=== PATIENT | male | born 1980 | race Two or more races ===

== ENCOUNTER 2016-07-29 16:03 | Emergency (ER) | payer SELFPAY ==
[2016-07-29] MEDS ORDERED: NORMAL SALINE 1000 ML 1,000 ML IV ONE (16:13)
--- NOTE | 2016-07-29 16:13 | ER Document Report ---
ED Medical Screen (RME) - General Stated Complaint: DIZZY Notes: patient is a 35 year old male p/w elevated blood sugar. Patient denies emesis, increased urine output, very thirsty. No known diagnosis of diabetes, negative family history I have greeted and performed a rapid initial assessment of this patient. A comprehensive ED assessment and evaluation of the patient, analysis of test results and completion of the medical decision making process will be conducted by additional ED providers. - Related Data Allergies/Adverse Reactions: No Known Allergies Allergy (Unverified 07/29/16 16:12) Physical Exam - Vital signs Vitals: Temp Pulse Resp BP Pulse Ox 98.2 F 72 20 139/87 H 97 07/29/16 16:09 07/29/16 16:09 07/29/16 16:09 07/29/16 16:09 07/29/16 16:09 Course - Vital Signs Vital signs: Temp Pulse Resp BP Pulse Ox 98.2 F 72 20 139/87 H 97 07/29/16 16:09 07/29/16 16:09 07/29/16 16:09 07/29/16 16:09 07/29/16 16:09
[2016-07-29 17:03] LABS: ABSOLUTE LYMPHOCYTES (AUTO) 1.7 10^3/uL (0.5-4.7); ABSOLUTE MONOCYTES (AUTO) 0.6 10^3/uL (0.1-1.4); ABSOLUTE NEUT (AUTO) 4.4 10^3/uL (1.7-8.2); BASOPHILS % (AUTO) 0.5 % (0-2); EOSINOPHILS % (AUTO) 0.6 % (0-6); HEMATOCRIT 45.3 % (37.9-51.0); HEMOGLOBIN 15.4 g/dL (13.5-17.0); HGB HCT DIFFERENCE 0.9; LYMPHOCYTES % (AUTO) 25.3 % (13-45); MEAN CORPUSCULAR HEMOGLOBIN 33.8 pg (27.0-33.4); MEAN CORPUSCULAR HGB CONC 33.9 g/dL (32.0-36.0); MEAN CORPUSCULAR VOLUME 100 fl (80-97); MONOCYTES % (AUTO) 9.1 % (3-13); RED BLOOD COUNT 4.55 10^6/uL (4.35-5.55); RED CELL DISTRIBUTION WIDTH 12.3 % (11.5-14.0); SEGMENTED NEUTROPHILS % (AUTO) 64.5 % (42-78); WHITE BLOOD COUNT 6.8 10^3/uL (4.0-10.5)
[2016-07-29 17:06] LABS: APPEARANCE,URINE CLEAR; BILIRUBIN,URINE NEGATIVE (NEGATIVE); GLUCOSE, URINE >=500 mg/dL (NEGATIVE); KETONES,URINE 20 mg/dL (NEGATIVE); LEUKOCYTE ESTERASE,URINE NEGATIVE (NEGATIVE); NITRITE,URINE NEGATIVE (NEGATIVE); PROTEIN,URINE NEGATIVE (NEGATIVE); URINE SPECIFIC GRAVITY 1.027; UROBILINOGEN,URINE NEGATIVE mg/dL (<2.0)
[2016-07-29 17:24] LABS: ALANINE AMINOTRANSFERASE 56 U/L (21-72); ALBUMIN 4.6 g/dL (3.5-5.0); ALKALINE PHOSPHATASE 260 U/L (38-126); ANION GAP 19 (5-19); ASPARTATE AMINO TRANSFERASE 35 U/L (17-59); BILIRUBIN,TOTAL 1.1 mg/dL (0.2-1.3); BLOOD UREA NITROGEN 15 mg/dL (7-20); CALCIUM 10.7 mg/dL (8.4-10.2); CARBON DIOXIDE 24 mmol/L (22-30); CHLORIDE 87 mmol/L (98-107); CREATININE RESULT 0.51 mg/dL (0.52-1.25); MAGNESIUM 2.2 mg/dL (1.6-2.3); POTASSIUM 4.4 mmol/L (3.6-5.0); SODIUM 129.6 mmol/L (137-145); TOTAL PROTEIN 7.1 g/dL (6.3-8.2)
[2016-07-29 17:35] LABS: GLUCOSE 806 mg/dL (75-110)
[2016-07-29] MEDS ORDERED: INSULIN REG, HUMAN 100 UNIT/ML 3 ML VIAL (PYX) IV ONE (17:49)
[2016-07-29] MEDS ORDERED: NORMAL SALINE 1000 ML 1,000 ML IV PRN (17:49)
--- NOTE | 2016-07-29 17:55 | ER Document Report ---
ED General - General Chief Complaint: Dizziness Stated Complaint: DIZZY Time seen by provider: 17:45 Mode of Arrival: Ambulatory Information source: Patient, Friend Notes: 35-year-old male speaks no Nepalese history obtained via ship's surveyor. Patient is 1 month history of polyuria polydipsia an increased appetite. He was seen at [facility] and had an Accu-Chek that was too high to read and referred to emergency department. Patient denies fever, chills, nausea, vomiting, cough, shortness breath, chest pain, abdominal pain, or back pain. No prior history diabetes and no family history diabetes Physical Exam: General: Alert, appears well. HEENT: Normocephalic. Atraumatic. PERRLA. Extraocular movements intact. Oropharynx clear. Neck: Supple. Non-tender. Respiratory: No respiratory distress. Clear and equal breath sounds bilaterally. Cardiovascular: Regular rate and rhythm. Abdominal: Normal Inspection. Soft, non-tender. No distension. Normal Bowel Sounds. Back: Non-tender. No deformity or step off. Extremities: Moves all four extremities. Upper extremities: Normal inspection. Non-tender. Normal color. Normal ROM. Normal temperature. Lower extremities: Normal inspection. Non-tender. No edema. Normal color. Normal ROM. Normal temperature. Neurological: Moves all extremities well and answers questions appropriately Psychological: Normal affect. Normal Mood. Skin: Warm. Dry. Normal color. TRAVEL OUTSIDE OF THE [place] IN LAST 30 DAYS: No - Related Data Allergies/Adverse Reactions: No Known Allergies Allergy (Unverified 07/29/16 16:12) Past Medical History - Social History Smoking Status: Never Smoker Chew tobacco use (# tins/day): No Frequency of alcohol use: None Drug Abuse: None Family History: denies: DM Patient has suicidal ideation: No Patient has homicidal ideation: No Endocrine Medical History: Denies: Hx Diabetes Mellitus Type 1, Hx Diabetes Mellitus Type 2 Renal/ Medical History: Denies: Hx Peritoneal Dialysis Review of Systems - Review of Systems Constitutional: denies: Chills, Fever EENT: denies: Ear pain, Throat pain Cardiovascular: denies: Chest pain, Syncope Respiratory: denies: Cough, Short of breath Gastrointestinal: denies: Abdominal pain, Diarrhea, Nausea, Vomiting Genitourinary: denies: Burning Musculoskeletal: denies: Back pain Skin: denies: Rash Hematologic/Lymphatic: denies: Swollen glands Neurological/Psychological: denies: Weakness, Numbness Physical Exam - Vital signs Vitals: Temp Pulse Resp BP Pulse Ox 98.2 F 72 20 139/87 H 97 07/29/16 16:09 07/29/16 16:09 07/29/16 16:09 07/29/16 16:09 07/29/16 16:09 Course - Re-evaluation Re-evalutation: 07/29/16 20:28 Patient was treated with IV fluids 20 units of IV regular insulin and recheck her blood sugar was 287. The patient is well-hydrated and has no evidence for DKA or hyperosmolar nonketotic state. He is instructed via ship's surveyor that he needs very close follow-up for diabetes and will receive diabetic education materials. I have concerns about how we he would manage subcutaneous insulin administration at that the safest course for treatment of this going forward at least initially is to place him on an oral agent and will start metformin 500 mg twice a day first dose now - Vital Signs Vital signs: Temp Pulse Resp BP Pulse Ox 98.2 F 72 17 125/75 99 07/29/16 16:09 07/29/16 16:09 07/29/16 19:01 07/29/16 19:00 07/29/16 19:01 - Laboratory Result Diagrams: 07/29/16 16:10 07/29/16 16:10 Laboratory results interpreted by me: 07/29/16 07/29/16 07/29/16 16:10 16:10 16:10 MCV 100 H MCH 33.8 H Sodium 129.6 L Chloride 87 L Creatinine 0.51 L Glucose 806 H* POC Glucose Hemoglobin A1c % > 14.0 H Calcium 10.7 H Alkaline Phosphatase 260 H Urine Glucose (UA) Urine Ketones 07/29/16 07/29/16 16:25 19:28 MCV MCH Sodium Chloride Creatinine Glucose POC Glucose 289 H Hemoglobin A1c % Calcium Alkaline Phosphatase Urine Glucose (UA) >=500 H Urine Ketones 20 H - Diagnostic Test Radiology reviewed: Image reviewed, Reports reviewed - EKG Interpretation by Me Additional EKG results interpreted by me: 07/29/16 20:27 EKG reviewed by myself shows sinus rhythm at 71 no acute changes Discharge - Discharge Clinical Impression: Diabetes Qualifiers: Diabetes mellitus type: type 2 Diabetes mellitus complication status: with hyperglycemia Diabetes mellitus custodial insulin use: without terminal operations supervisor use Qualified Code(s): E11.65 - Type 2 diabetes mellitus with hyperglycemia Condition: Stable Disposition: HOME, SELF-CARE Additional Instructions: Diabetes You have an abnormally high blood sugar, suspicious for diabetes. Not all high blood sugar requires long-term treatment. High blood sugar can be due to medications, , or the stress of illness. (These cases are "borderline diabetes.") If the doctor feels your high blood sugar might get better with time, you may not require treatment now. You will be scheduled for further evaluation. It's very important that you follow through. Uncontrolled high blood sugar leads to early heart disease , strokes, nerve damage, eye damage, and kidney damage. All diabetics should follow a diet designed to control the blood sugar. Overweight diabetics should exercise regularly and lose weight. If this is not sufficient to control the blood sugar, pills or insulin shots are necessary. Younger people who develop diabetes almost always require insulin daily. Home testing of blood sugars or urine sugar is required. Diabetic teaching is available to help you figure insulin doses and monitor the blood sugar. Call the physician if there is faintness, excess sleepiness, or very rapid breathing. If hypoglycemia (LOW blood sugar) develops, symptoms are shakiness, weakness, sweating, and confusion. In this case, you should eat or drink something with sugar at once. Prescriptions: Metformin HCl 500 mg PO BID #30 tablet Referrals: [facility] [Provider Group] - Follow up as needed Print Language: Syrian
[2016-07-29 17:57] LABS: VENOUS BLOOD BASE EXCESS 1.4 mmol/L; VENOUS BLOOD HCO3 27.6 mmol/L (20-32); VENOUS BLOOD PCO2 48.9 mmHg (35-63); VENOUS BLOOD PH 7.37 (7.30-7.42)
[2016-07-29 19:49] VITALS: BP 125/75
--- NOTE | 2016-07-29 20:02 | EKG REPORT ---
SEVERITY:- NORMAL ECG - SINUS RHYTHM : Confirmed by: Prashanth Tellez 29-Jul-2016 20:01:20
[2016-07-29] MEDS ORDERED: METFORMIN HCL 500 MG TABLET PO ONE (20:26)
== END 2016-07-29 21:01 | disposition home or self-care (01) ==
LOC: ER 16:03
DX: E11.65 Type 2 diabetes mellitus with hyperglycemia (principal); R42 Dizziness and giddiness; R63.1 Polydipsia; R63.2 Polyphagia
CPT/HCPCS: 93005; 99284; 96360; 96361; 36415; 82962; 83735; 85025; 80053; 81001; 83036; 82803; 71020; 93010; J1815; J7030